=== PATIENT | female | born 1950 | race Caucasian/White ===

== ENCOUNTER 2021-01-01 10:41 | Emergency (ER) | payer MEDICARE ==
[~2021-01-01] VITALS: Ht 167.6 cm; Wt 70.0 kg
[2021-01-01 10:51] VITALS: BP 159/78
== END 2021-01-01 17:51 | disposition home or self-care (01) ==
LOC: ER 10:42
DX: S00.83XA Contusion of other part of head, initial encounter (principal); S00.12XA Contusion of left eyelid and periocular area, initial encounter; S00.11XA Contusion of right eyelid and periocular area, initial encounter; W19.XXXA Unspecified fall, initial encounter; Y93.89 Activity, other specified; Y92.89 Other specified places as the place of occurrence of the external cause; Y99.8 Other external cause status
CPT/HCPCS: 70450; 99284